=== PATIENT | female | born 1960 | race Two or more races ===

== ENCOUNTER → 2025-01-19 | Outpatient (CLI) | payer OTHER, SELFPAY ==
[2025-01-06 15:51] LABS: Blood Urea Nitrogen 15 mg/dL (9-23); Creatinine (Component) 0.9 mg/dL (0.6-1.3); eGFR > 60 See Note
--- NOTE | 2025-01-19 16:00 | XR_ITS ---
Examination: CT abdomen with intravenous contrast CT pelvis with intravenous contrast 2-D coronal reconstructions 2-D sagittal reconstructions Date and time of exam: January 19, 2025, 1717 hours INDICATIONS: Lower abdominal pain beginning 3 weeks ago. CTDI: vol (mGy) 7.15 DLP: (mGycm) 389 Technique: Multiple axial sections of the abdomen and pelvis have been obtained. 64 slice high-resolution scanner used. 3 mm axial sections have been obtained, post intravenous injection 60 cc Isovue 370 2-D sagittal, coronal reconstructions obtained. Low dose protocols were performed. One or more of the following dose reduction techniques were used; automated exposure control, adjustment of the mA and/or KV according to patient size, use of iterative reconstruction technique. Findings: 9 mm pulmonary nodule indistinct margins right lower lobe No focal liver or splenic lesion Absent gallbladder No common bile duct stones No pancreatic mass Fat-containing 26 mm right adrenal adenoma Moderate renal scarring, no hydronephrosis or ureteral calculi Aortic calcification no aneurysmal dilatation Colonic diverticulosis,, suspicious for early diverticulitis distal descending colon, axial image 143 Contracted urinary bladder Absent uterus No pericecal inflammatory change Moderate osteopenia IMPRESSION: 9 mm pulmonary nodule right lower lobe, consider CT chest without contrast follow-up 26 mm fat-containing right adrenal adenoma Moderate renal scar formation, no renal or ureteral calculi, no hydronephrosis No CT findings of appendicitis or bowel obstruction Suspicious for early diverticulitis involving distal descending colon axial image 143, no peridiverticular abscess
== END | disposition home or self-care (01) ==
LOC: SCAT 15:31
PROVIDERS: PCP Physician Assistant; Referring Provider Surgery; Visit Provider Surgery
DX: R91.1 Solitary pulmonary nodule (principal); D35.01 Benign neoplasm of right adrenal gland; N28.89 Other specified disorders of kidney and ureter; R10.33 Periumbilical pain; R10.24 Suprapubic pain
CPT/HCPCS: 36415; 74177; 82565; 84520; A4649; Q9967